=== PATIENT | female | born 1965 | race Caucasian/White ===

== ENCOUNTER 2017-03-05 13:46 | Outpatient (CLI) | payer OTHER ==
--- NOTE | 2017-03-05 15:49 | RAD ---
SUP[facility] AP ABDOMINAL RADIOGRAPH 03/05/2017 HISTORY: Recurrent nephrolithiasis. Hematuria. COMPARISON: No prior studies are available for comparison. FINDINGS: Renal shadows are obscured by overlying bowel gas. Multiple calcifications overly the pelvis, the m ajority of which likely represent phleboliths. A distal ureteral calculus cannot be excluded based on this exam. There is an irregular, radiopaque density seen just to the right of the inferior aspe ct of the L4 vertebral body, which cannot be further localized, although this does overly the expect ed location of the right ureter. However, this is probably related to artifact or prior post surgic al change, as there are multiple ring-like, metallic densities overlying the abdomen and pelvis, lik sherly related to mesh material. Degenerative changes are seen in the spine. There is a nonspecific b owel gas pattern. IMPRESSION: 1. Multiple calcifications overlying the pelvis, which likely represent multiple phleboliths. A di stal ureteral calculus cannot be entirely excluded. 2. Irregular, radiopaque density just to the right of the L4 vertebral body, which cannot be furthe r localized. This does overly the expected location of the right ureter. While a ureteral calculus cannot be entirely excluded, this may be related to overlying artifact. Depending on clinical conc [place], CT abdomen and pelvis without intravenous contrast may be helpful for further evaluation. POS: [facility]
== END 2017-03-05 13:47 | disposition home or self-care (01) ==
LOC: NAV RAD 13:46
PROVIDERS: ATTEND Family Medicine
DX: N20.0 Calculus of kidney (principal)
CPT/HCPCS: 74000